=== PATIENT | male | born 1955 | race Caucasian/White ===

== ENCOUNTER 2018-10-02 01:50 | Emergency (ER) | payer OTHER ==
[2018-10-02 02:00] VITALS: BMI 26.4
[2018-10-02 02:04] VITALS: RESP 16; TEMP 97.5
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
[2018-10-02 05:17] VITALS: BP 135/71; PULSE 68; O2SAT 99
== END 2018-10-02 04:30 | disposition home or self-care (01) ==
LOC: ED 01:50
DX: M79.10 Myalgia, unspecified site (principal); E78.5 Hyperlipidemia, unspecified
CPT/HCPCS: 96372; 99284; J1885